=== PATIENT | female | born 1975 | race Hispanic/Latino ===

== ENCOUNTER 2021-05-14 19:17 | Emergency (ER) | payer OTHER, SELFPAY ==
[2021-05-14] MEDS ORDERED: Lidocaine 1% (PF) 30 ML VIAL ONE (19:25)
[2021-05-14] MEDS ORDERED: HYDROcodone/Acetaminophen 10/325 mg Tablet ONE (19:43)
== END 2021-05-14 20:20 | disposition home or self-care (01) ==
LOC: BURERS 19:17
DX: S61.210A Laceration without foreign body of right index finger without damage to nail, initial encounter (principal)
CPT/HCPCS: J2001